=== PATIENT | female | born 1945 | race Caucasian/White ===

== ENCOUNTER → 2023-11-02 11:35 | Outpatient (REF) | payer MEDICARE, SELFPAY ==
[2023-11-02 13:01] LABS: % Basophils 0.5 % (0-2); % Eosinophils 2.2 % (0-6); % Immature Granulocytes 0.7 % (0-0.5); % Lymphocytes 21.7 % (20.5-51.1); % Monocytes 11.1 % (1.7-9.3); % Neutrophils 63.8 % (42.2-75.2); Absolute Basophils 0.1 10^3/uL (0-0.2); Absolute Eosinophils 0.2 10^3/uL (0-0.7); Absolute Immature Granulocytes 0.1 10^3/uL (0-0.05); Absolute Lymphocytes 2.1 10^3/uL (1.2-3.4); Absolute Monocytes 1.1 10^3/uL (0.1-0.6); Hematocrit 33.9 % (37.0-47.0); Hemoglobin 11.3 g/dL (12.0-16.0); Mean Corp Hgb Conc. 33.3 g/dL (33.0-37.0); Mean Corpuscular Hgb 30.7 pg (27.0-31.0); Mean Corpuscular Volume 92.1 fL (81.0-99.0); Mean Platelet Volume 9.3 fL (7.4-10.4); Nucleated Red Blood Cells % 0 %; Platelet Count 376 10^3/uL (130-400); Red Blood Cell Count 3.68 10^6/uL (4.20-5.40); Red Cell Dist. Width 13.2 % (11.5-14.5); White Blood Cell Count 9.5 10^3/uL (4.8-10.8)
[2023-11-02 13:10] LABS: Urine Albumin Negative (Neg - Trace); Urine Bilirubin Negative (Negative); Urine Character Clear (Clear); Urine Color Yellow; Urine Glucose Negative (Negative); Urine Ketone Negative (Negative); Urine Leukocyte Negative (Negative); Urine Nitrite Negative (Negative); Urine Occult Blood Negative (Negative); Urine Urobilinogen Negative (Neg - 1+); Urine pH 6.5 (5.0-9.0)
[2023-11-02 13:23] LABS: ALT (SGPT) < 10 U/L (0-35); AST (SGOT) 17 U/L (14-36); Albumin 3.1 g/dl (3.5-5.0); Alkaline Phosphatase 93 U/L (38-126); Blood Urea Nitrogen 22 mg/dl (7-17); Calcium 9.2 mg/dl (8.4-10.2); Carbon Dioxide 22 mmol/L (22-30); Chloride 108 mmol/L (98-107); Glucose 83 mg/dl (70-99); Potassium 4.2 mmol/L (3.5-5.1); Sodium 137 mmol/L (135-145); Total Bilirubin 0.7 mg/dl (0.2-1.3); Total Protein 5.8 g/dl (6.3-8.2); eGFR > 60.00
== END ==
LOC: OLABN 11:35
PROVIDERS: ATTENDING PHYSICIAN Student in an Organized Health Care Education/Training Program
DX: R35.0 Frequency of micturition (principal); E78.5 Hyperlipidemia, unspecified
CPT/HCPCS: 80053; 81003; 83735; 85025; 87086

== ENCOUNTER → 2024-08-10 10:07 | Outpatient (REF) | payer MEDICARE, SELFPAY ==
[2024-08-10 12:12] LABS: HDL Cholesterol 33 mg/dl; LDL Cholesterol, Calculated 65 mg/dl; Total Cholesterol 138 mg/dl (50-199); Triglyceride 201 mg/dl (10-149); Very Low Density Lipoprotein 40 mg/dl (0-30)
== END ==
LOC: OLABN 10:07
PROVIDERS: ATTENDING PHYSICIAN Student in an Organized Health Care Education/Training Program
DX: E78.5 Hyperlipidemia, unspecified (principal)
CPT/HCPCS: 36415; 80061

== ENCOUNTER 2024-09-07 04:02 | Inpatient (IN) | payer MEDICARE, OTHER, SELFPAY ==
[2024-09-06 22:07] VITALS: BP 139/74
[2024-09-06] MEDS: TYLENOL/FEVERALL 650 MG RECTAL (22:40)
[2024-09-06 22:43] LABS: % Basophils 0.3 % (0-2); % Eosinophils 0.2 % (0-6); % Immature Granulocytes 0.3 % (0-0.5); % Lymphocytes 6.7 % (20.5-51.1); % Monocytes 12.2 % (1.7-9.3); % Neutrophils 80.3 % (42.2-75.2); Absolute Lymphocytes 0.8 10^3/uL (1.2-3.4); Absolute Monocytes 1.5 10^3/uL (0.1-0.6); Absolute Neutrophils 9.5 10^3/uL (1.4-6.5); Hematocrit 36.1 % (37.0-47.0); Hemoglobin 12.4 g/dL (12.0-16.0); Mean Corp Hgb Conc. 34.3 g/dL (33.0-37.0); Mean Platelet Volume 8.9 fL (7.4-10.4); Nucleated Red Blood Cells % 0 %; Platelet Count 222 10^3/uL (130-400); Red Blood Cell Count 3.76 10^6/uL (4.20-5.40); Red Cell Dist. Width 12.4 % (11.5-14.5); Urine Albumin 2+ (Neg - Trace); Urine Bilirubin Negative (Negative); Urine Character Clear (Clear); Urine Color Yellow; Urine Glucose Negative (Negative); Urine Ketone Negative (Negative); Urine Leukocyte 1+ (Negative); Urine Nitrite Negative (Negative); Urine Occult Blood 3+ (Negative); Urine Specific Gravity 1.015 (<1.030); Urine Urobilinogen Negative (Neg - 1+); White Blood Cell Count 11.9 10^3/uL (4.8-10.8)
[2024-09-06 22:50] LABS: Urine Mucus Few
[2024-09-06 22:52] LABS: Urine Bacteria Many (Negative)
[2024-09-06 23:05] LABS: Lactic Acid 0.6 mmol/L (0.7-2.0)
[2024-09-06 23:14] LABS: ALT (SGPT) 18 U/L (0-35); AST (SGOT) 32 U/L (14-36); Albumin 3.6 g/dl (3.5-5.0); Alkaline Phosphatase 99 U/L (38-126); Blood Urea Nitrogen 48 mg/dl (7-17); Calcium 8.2 mg/dl (8.4-10.2); Carbon Dioxide 25 mmol/L (22-30); Chloride 105 mmol/L (98-107); Glucose 127 mg/dl (70-99); Potassium 4.6 mmol/L (3.5-5.1); Sodium 139 mmol/L (135-145); Total Bilirubin 0.1 mg/dl (0.2-1.3); Total Protein 6.2 g/dl (6.3-8.2); eGFR 50.48
[2024-09-07] VITALS (13 sets, daily range): BP systolic 92–174; BP diastolic 52–86; BMI 29.2; BMI 28.2
--- NOTE | 2024-09-07 01:22 | ED.GENMED ---
History of Present Illness
General
Chief Complaint: Change in Mental Status
Source: ambulance crew
Exam Limitations: none
Time Seen by Provider: 09/07/24 01:16
Nursing documentation reviewed up to this point in time: agreed with
History of Present Illness
History of Present Illness:
79-year-old female with altered mental status, decreased responsiveness. She is unresponsive to painful stimuli at this time. She presents with a fever 103.8.
Past History
Past History
ED Past Medical History: HTN and Hypercholesterolemia
ED Past Surgical History: Other (unknown)
Social History
Tobacco: Non-smoker
Alcohol: None
Drug: None
Living: correction
Review of Systems
Review of Systems
Allergies reviewed?: Yes
Unable to obtain full review of systems at this time due to: non-verbal
All Other Systems: Not applicable
Constitutional: Reports fever
Phy Exam
Physical Exam
Physical Exam:
Physical Exam
General: Ill-appearing, fever 101.3
Neck: supple. no meningeal signs. normal posterior pharynx
Heart: s1/s2 regular rate and rhythm, no murmur. equal radial
pulses.
HEENT: Pupils equal round reactive to light, EOMI
Lungs: no acute respiratory distress. clear bilaterally
Abdomen: normal bowel sounds. not tender. no CVAT
Neuro: Obtunded. no focal neurological deficits cranial nerves II through XII intact
Skin: no rash
Psychiatric: Unresponsive
Extremities: no edema. no calf tenderness. negative homans. good distal pulses
Sepsis
Sepsis Screening
Sepsis Assessment: Sepsis
Sepsis Screening: Hypotension
Sepsis Screen
Sepsis Screen: Sepsis
Date: 09/07/24
Time: 01:00
Course
Orders/Labs/Results
Orders:
Orders
09/06/24 22:27
EKG [Electrocardiogram (*1)] Urgent
Reason for Study: Tachycardia
EKG- Treatment ONCE
09/06/24 22:29
Complete Blood Count/With Diff Urgent
Comprehensive Metabolic Panel Urgent
Lactic Acid Urgent
Urinalysis Reflex To Culture Urgent
Date Specimen was Collected: 09/06/24
Time Specimen was Collected: 22:27
Urine Microscopic Reflex Cult Urgent
Urine Culture Urgent
IVETH Source: U
Specimen Description:
Date Specimen was Collected: 09/06/24
Time Specimen was Collected: 22:27
09/06/24 22:38
Acetaminophen [Tylenol/Feverall] 650 mg .ROUTE .STK-MED ONE
09/06/24 22:39
Acetaminophen [Tylenol/Feverall] 650 mg RECTAL NOW STA
09/07/24 01:26
COVID-19 Antigen Urgent
Source: Nasal Swab
Influenza A+B Rapid Molecular Urgent
IVETH Source: Nasal Swab
Specimen Description:
09/07/24 02:06
CR Chest Portable - 1 View Urgent
Comment:
Reason For Exam: fever
Reason Study Needs to be Portable: Unable to Transport
09/07/24 02:08
Lactated Ringers [Lr] 1,000 ml IV BOLUS
09/07/24 02:48
Cefepime HCl [Maxipime] 1,000 mg IV NOW STA
09/07/24 02:50
Vancomycin [Vancocin] 2,000 mg 0.9% Sodium Chloride 500 ml [Nss] 500 ml IV NOW
09/07/24 03:07
Vancomycin [Vancocin] 2,000 mg 0.9% Sodium Chloride 500 ml [Nss] 500 ml IV NOW
09/07/24 04:00
Flush (0.9% Sodium Chloride) [Flush (Nss)] See Dose Instructions IV PER PROTOCOL
Abnormal Lab Results
09/06/24
22:29
WBC 11.9 H 10^3/uL
(4.8-10.8)
RBC 3.76 L 10^6/uL
(4.20-5.40)
Hct 36.1 L %
(37.0-47.0)
MCH 33.0 H pg
(27.0-31.0)
Absolute Neuts (auto) 9.5 H 10^3/uL
(1.4-6.5)
Absolute Lymphs (auto) 0.8 L 10^3/uL
(1.2-3.4)
Absolute Monos (auto) 1.5 H 10^3/uL
(0.1-0.6)
Neutrophils % 80.3 H %
(42.2-75.2)
Lymphocytes % 6.7 L %
(20.5-51.1)
Monocytes % 12.2 H %
(1.7-9.3)
BUN 48 H mg/dl
(7-17)
Creatinine 1.1 H mg/dL
(0.6-1.0)
Glucose 127 H mg/dl
(70-99)
Lactic Acid 0.6 L mmol/L
(0.7-2.0)
Calcium 8.2 L mg/dl
(8.4-10.2)
Total Bilirubin 0.1 L mg/dl
(0.2-1.3)
Total Protein 6.2 L g/dl
(6.3-8.2)
Ur Occult Blood Reflex 3+ A
(Negative)
Leukocyte Esterase Rfl 1+ A
(Negative)
Urine RBC 7-10 A /HPF
(0-2)
Urine WBC (Reflex) 11-15 A /HPF
(0-5)
Urine Bacteria (Reflex) Many A
(Negative)
Urine Albumin (Reflex) 2+ A
(Neg - Trace)
09/06/24 22:29
09/06/24 22:29
Vital Signs
Initial and Last Documented VS:
Initial Vital Signs
Temp Pulse Resp BP Pulse Ox
103.8 F H 122 28 139/74 88
09/06/24 22:07 09/06/24 22:07 09/06/24 22:07 09/06/24 22:07 09/06/24 22:07
Last Documented Vital Signs
Temp Pulse Resp BP Pulse Ox
101.3 F H 76 14 108/54 100
09/07/24 00:19 09/07/24 03:00 09/07/24 03:00 09/07/24 03:00 09/07/24 03:00
MDM/Problems Addressed
Differential Diagnosis Includes:
Sepsis, pneumonia, UTI
MDM/Problems Addressed:
79-year-old female with fever of unclear etiology. Patient altered. Limited interventions requested. Discussed with son Ludwig, who allows antibiotics. Broad-spectrum antibiotics given. Admit to hospitalist.
*Radiology
Radiology exam reviewed: preliminary read by ED provider (Chest x-ray no acute findings)
*Pulse Oximetry
Patient hypoxic: no
*EKG
Interpreted by ED Provider?: Yes
EKG Intrepretation Date: 09/07/24
EKG Intrepretation Time: 22:38
Interpretation: abnormal
Comparison EKG: changes noted
Heart Rate: 115
Rate: tachycardiac
Rhythm: sinus tachycardia
[place]: left axis deviation
Interval: normal interval
QRS Pattern: normal QRS
Ischemia: non-specific ST changes
*Mechanical Maintenance Engineer Interpretation
Rate: tachycardiac
Interpretation: abnormal
Heart Rate: 112
Rhythm: sinus tachycardia
*Critical Care Note
Total Time (30-74mins, 75-104mins- exclusive of procedures): Not Applicable
Patient Management
Social determinants of health affecting care: Living situation
Discussion with other providers: Hospitalist
Escalation/DeEscalation of care consider admission/obs:
admit indicated
ED Attending Note
-
Portions of this chart may have been created with voice recognition software.� Occasional wrong word or��sound alike� substitutions may have occurred due to the inherent limitations of voice recognition software.
Discharge Plan
Departure
Patient Disposition: Admit
Date of Disposition: 09/07/24
Time of Disposition: 02:34
Admit to: Telemetry
Presentation/result/management discussed w/ accepting MD/DO: Hospitalist
Patient with high blood pressure during this ER visit?: No
Condition: Serious
Discharge Problem:
Fever, Altered mental status
Prescriptions:
No Action
atorvastatin 20 MG tablet
20 mg PO QPM
diltiazem HCl [Tiazac] 180 MG capsule,extended release 24 hr
120 mg PO DAILY
polyethylene glycol 3350 [Miralax] 17 gram Powder In Packet
17 g PO DAILY
sennosides-docusate sodium [Senna-S] 8.6-50 mg Tablet
1 tab-cap PO HS
ferrous sulfate 325 mg (65 mg iron) Tablet
325 mg PO BID
ascorbic acid (vitamin C) 500 mg Capsule, Extended Release
500 mg PO DAILY
metoprolol succinate 25 mg Tablet Extended Release 24 Hr
12.5 mg PO DAILY
Vitamin D2 25,000 unit Capsule
50,000 unit PO WEEKLY
Referrals:
Markie Oleary DO [Family Provider] -
Interventions
Interventions:
*Risk Screen - Suicide Last Done: 09/06/24 22:07
*General Assessment Last Done: 09/06/24 22:07
*Neglect/Abuse Screening Last Done: 09/06/24 22:07
ED- Fall Risk Assessment Last Done: 09/06/24 22:07
*ED COVID-19 Vaccine History Last Done: 09/06/24 22:07
ED- Pulmonary Assessment Last Done: 09/07/24 00:46
ED- Neurological Assessment Last Done: 09/06/24 22:31
ED- Cardiac Assessment Last Done: 09/06/24 22:32
ED Swallowing Screen Last Done: 09/06/24 22:46
Discharge Date and Time
Print Language: [place]
[2024-09-07 01:56] LABS: COVID-19 Antigen Negative (Negative)
[2024-09-07] MEDS: LR 1000 IV (02:15)
[2024-09-07] MEDS: MAXIPIME IV (03:01)
--- NOTE | 2024-09-07 03:05 | EDRN ---
Assumed care of pt. at change of shift. Per outgoing RN, verbal order received from ED for RN to hold ordered antibiotics, as pt. arrives w/ paperwork, a POST document, that states pt. does not wish to receive antibiotics. ED attempting to
contact pt.'s family/POA to clarify pt.'s wishes, RN currently holding medication per verbal orders.
[2024-09-07] MEDS: VANCOCIN IV (03:09)
--- NOTE | 2024-09-07 03:33 | EDRN ---
Per Dr. Newell, pt. batsheva to receive ordered antibiotics. RN to administer.
[2024-09-07] MEDS: MAXIPIME 1000 MG IV (03:46)
[2024-09-07] MEDS: VANCOCIN 540 MG IV (03:47)
--- NOTE | 2024-09-07 03:50 | HPS.HSE ---
Family Physician
-
Family Physician: Markie Oleary DO
Chief Complaint
-
Fever, Lethargy
History of Present Illness
Patient is an 79y F with PMH significant for advanced dementia, hypertension and dyslipidemia who presents to ED from local ID for evaluation of lethargy and fever. ID record indicates that patient seemed more lethargic than usual. Noted to
have fever at ID and sent to ED for evaluation. On arrival to the ED, patient was tachycardic, hypoxemic and had fever to 103.8. Patient is unresponsive and unable to add to this history - ? baseline mentation.
She does have noted cough during my exam.
Medical History
Past Medical History
Past Medical History: Reports Other
Additional Past Medical History:
Senile Dementia
Hypertension
Dyslipidemia
Vitamin D Deficiency
Chronic Anemia
Past Surgical History: Reports Other
Additional Past Surgical History:
None Known
Social History
Unable to obtain full social history at this time due to: Patient Non-verbal
Family History
Family History: Unable to Obtain
Allergies / Home Medications
Allergies reflects when Allergies were last updated in [facility].
Home Medications with original date entered in [facility]
Allergy/Medication List:
Allergies
Allergy/AdvReac Type Severity Reaction Status Date / Time
Penicillins Allergy Unknown Unknown Verified 09/06/24 22:31
Home Medications
atorvastatin 20 mg tablet 20 mg PO QPM High cholesterol 01/17/22
diltiazem HCl 180 mg capsule,24 hr,extended release (Tiazac) 120 mg PO DAILY Heart disease/condition 01/17/22
ascorbic acid (vitamin C) 500 mg capsule,extended release 500 mg PO DAILY 09/07/24
ergocalciferol (vitamin D2) 25,000 unit capsule 50,000 unit PO WEEKLY 09/07/24
ferrous sulfate 325 mg (65 mg iron) tablet 325 mg PO BID 09/07/24
metoprolol succinate 25 mg tablet,extended release 24 hr 12.5 mg PO DAILY 09/07/24
polyethylene glycol 3350 17 gram oral powder packet (Miralax) 17 g PO DAILY 09/07/24
sennosides 8.6 mg-docusate sodium 50 mg tablet (Senna-S) 1 tab-cap PO HS 09/07/24
Review of Systems
-
Unable to obtain full review of systems at this time due to: Patient Non-verbal
Physical Exam
Vital Signs
Vital Signs
Temp Pulse Resp BP Pulse Ox
101.3 F H 76 14 108/54 100
09/07/24 00:19 09/07/24 03:00 09/07/24 03:00 09/07/24 03:00 09/07/24 03:00
Physical Exam
General: Other (79y F lethargic, unresponsive to verbal or noxious stimuli.)
HEENT: Other (Dry MM. Neck supple.)
Respiratory: Other (Decreased BS bilaterally. Poor effort. No focal rales / rhonchi appreciated.)
Cardiac: S1/S2, Regular Rhythm and Murmur (II/ KRIS)
GI: Soft, Non Tender, Non Distended and Normal Bowel Sounds
Musculoskeletal: No Clubbing, No Cyanosis and No Edema
Laboratory Results
-
09/06/24 22:29
09/06/24 22:
Laboratory Results
Lactic Acid 0.6 mmol/L (0.7-2.0) L 09/06/24 22:
Total Bilirubin 0.1 mg/dl (0.2-1.3) L 09/06/24 22:
AST 32 U/L (14-36) 09/06/24 22:
ALT 18 U/L (0-35) 09/06/24 22:
Alkaline Phosphatase 99 U/L (38-126) 09/06/24 22:
Impression/Plan
-
A/P: Patient is an 79y F with PMH significant for dementia and hypertension who presents to ED from local ID for evaluation of fever and lethargy.
Sepsis
Acute TME secondary to the above
- Admit for further evaluation and treatment.
- Patient presents with fever, tachycardia, tachypnea and transient hypoxemia.
- CXR somewhat difficult exam due to positioning - but no evident infiltrate.
- Cough during exam and ? aspiration episode.
- IV abx for now. Follow fever curve, culture data, etc.
- Aspiration precautions. Formal Speech evaluation.
- Follow for any new / focal complaints or symptoms.
- IVF support / antipyretics / etc.
- ID evaluation for additional recommendations.
NELDA
- SCr = 1.1 compared to prior baseline of 0.6.
- Likely secondary to sepsis.
- IVF support as noted above. Follow for improvement.
Benign Hypertension
- Hold outpatient medications acutely given relative hypotension.
- Resume when appropriate and patient OK for PO intake.
Senile Dementia
- ? baseline functional status.
- ID record indicates chronically incontinent and requires assistance with all ADLs.
- PT / OT evaluations.
- Follow for any acute agitation, etc during stay.
DVT Prophylaxis: Subcut heparin
Code Status: DNR
[2024-09-07] MEDS: NSS 1000 IV ×3 (04:36→23:01)
[2024-09-07 05:36] LABS: Hematocrit 34.6 % (37.0-47.0); Hemoglobin 11.5 g/dL (12.0-16.0); Mean Corp Hgb Conc. 33.2 g/dL (33.0-37.0); Mean Corpuscular Hgb 32.7 pg (27.0-31.0); Mean Corpuscular Volume 98.3 fL (81.0-99.0); Mean Platelet Volume 8.8 fL (7.4-10.4); Platelet Count 197 10^3/uL (130-400); Red Blood Cell Count 3.52 10^6/uL (4.20-5.40); Red Cell Dist. Width 12.5 % (11.5-14.5); White Blood Cell Count 8.1 10^3/uL (4.8-10.8)
[2024-09-07 05:49] LABS: Blood Urea Nitrogen 49 mg/dl (7-17); Calcium 8.4 mg/dl (8.4-10.2); Carbon Dioxide 25 mmol/L (22-30); Chloride 108 mmol/L (98-107); Estimated Creatinine Clearance 46 ml/min; Glucose 107 mg/dl (70-99); Potassium 4.3 mmol/L (3.5-5.1); Sodium 139 mmol/L (135-145); eGFR > 60.00
[2024-09-07] MEDS: HEPARIN 5000 UNITS SC ×2 (08:00→19:48)
[2024-09-07] MEDS: MAXIPIME 2000 MG IV ×2 (08:01→19:48)
[2024-09-07] MEDS: FLAGYL 500 MG 100 IV ×3 (08:01→23:00)
[2024-09-07] MEDS: STERILE WATER FOR INJECTION 10 ML IV ×2 (08:02→19:49)
[2024-09-07] MEDS: TYLENOL/FEVERALL 650 MG RECTAL ×3 (08:36→20:00)
--- NOTE | 2024-09-07 11:55 | W.PN.UPDATE ---
Addendum entered and electronically signed by Dilip Sharma MD 09/07/24 12:47:
Per son at baseline patient will say her name. and wont converse. Patient currently admitted to [facility] as with dementia.
Addendum entered and electronically signed by Dilip Sharma MD 09/07/24 12:47:
Updated patient's son Ludwig over the phone in details.
Original Note:
Update Note
Progress Note Update
Seen and examined independent of overnight physician
Patient currently resting in bed. Warm to touch. Opens eyes but not following commands.
General: Other (79y F lethargic, unresponsive to verbal or noxious stimuli.)
HEENT: Other (Dry MM. Neck supple.)
Respiratory: Other (Decreased BS bilaterally. Poor effort. No focal rales / rhonchi appreciated.)
Cardiac: S1/S2, Regular Rhythm and Murmur (II/ KRIS)
GI: Soft, Non Tender, Non Distended and Normal Bowel Sounds
Musculoskeletal: No Clubbing, No Cyanosis and No Edema
A/P: Patient is an 79y F with PMH significant for dementia and hypertension who presents to ED from local [place] for evaluation of fever and lethargy.
Sepsis
Acute TME secondary to the above
- Patient presents with fever, tachycardia, tachypnea and transient hypoxemia.
- CXR somewhat difficult exam due to positioning - but no evident infiltrate.
- IV abx for now. Follow fever curve, culture data, etc.
- Aspiration precautions. Formal Speech evaluation.
- Follow for any new / focal complaints or symptoms.
- IVF support / antipyretics / etc. persistent fevers noted. Influenza and COVID-negative.
- Blood cultures not ordered on admission. ordered for now. However patient did receive antibiotics.
- Unable to get CAT scan with contrast as with elevated creatinine.
- ID evaluation for additional recommendations.
Elevated creatinine likely NELDA versus NELDA on CKD
- Likely secondary to sepsis.
- IVF support as noted above. Follow for improvement.
- renal bladder US -r/o hydro.
Benign Hypertension
- Hold outpatient medications acutely given relative hypotension.
- Resume when appropriate and patient OK for PO intake.
Senile Dementia
- ? baseline functional status.
- NH record indicates chronically incontinent and requires assistance with all ADLs.
- PT / OT evaluations. Speech eval. NPO and IVF in the interim
- Follow for any acute agitation, etc during stay.
DVT Prophylaxis: Subcut heparin
Code Status: DNR
--- NOTE | 2024-09-07 16:17 | CON.ID ---
Consultation
-
Date/Time Consultation Requested: 09/07/2024 0410
Date/Time Consultation Performed: 09/07/2024 1550
Requesting Provider: Dr. Hampton
Performing Provider: Dr. Bucio
Reason for Consultation: Clinical sepsis
Chief Complaint / Past History
History of Present Illness
Alva Mac is an 79-year-old female being evaluated at request of Dr. Hampton in regards to clinical sepsis. History is obtained from chart review, along with patient interview.
The patient has a significant history of dementia, hypertension and dyslipidemia who [facility] secondary to reported change in mental status and decreased responsiveness. In the emergency room her
temperature was found to be 103.8 degrees (rectal), with a leukocytosis. Since admission she has had persistent fevers up to 102.5 degrees.
Little further information is available at this time. Family is at the bedside, but are not sure about the most recent events, having last seen the patient approximately 2 weeks prior. At baseline, they report that she opens her eyes, but does not
engage in significant verbalization.
Past History
Additional Past Medical History:
Advanced dementia
HTN
Dyslipidemia
Past Surgical History: Other (Unknown)
Allergy History:
Penicillins Allergy (Unknown, Verified 09/06/24 22:31)
Unknown
Medications Reviewed: Yes
Current Antibiotics:
Cefepime 2 g IV every 12 hours
Metronidazole 500 mg IV q8
Social History
Tobacco: Non-Smoker
Alcohol: None
Drug: None
Living: Alf
Employment: Not Employed
Family History
Family History: Unable to Obtain
Review of Systems
Vital Signs
Temp Pulse Resp BP Pulse Ox
102.5 F H 113 20 129/63 95
09/07/24 13:30 09/07/24 13:27 09/07/24 13:27 09/07/24 13:27 09/07/24 13:27
Physical Exam
Physical Exam
Constitutional: Comfortable, Acutely Ill, Chronically Ill and Non-toxic
Head: Normocephalic
Eyes: Pupils Equal, Pupils Round, No Conjunctival Hemorrhage and Sclera Anicteric
Oral: No Thrush and No Ulcers
Cardiovascular: Regular Rate and S1/S2; Negative S3/S4
Pulmonary: Clear; Negative Wheezes, Rales or Rhonchi
Gastrointestinal: Soft, Non Tender, Non Distended, Normal Bowel Sounds, No Rebound and No Guarding
Genito-Urinary: Negative [place], Suprapubic Tenderness or CVA Tenderness
Extremities: Edema (trace); Negative Cyanosis, Erythema or Calf Swelling
Skin: Warm and Dry; Negative Rash or Jaundice
Wound: None and Other
Neurological: Other (minimally responsive to voice/touch); Negative Meningeal Signs (No nuchal rigidity)
.
Lab / Diagnostic Study Results
09/07/24 05:15
09/07/24 05:15
Abs Immat Gran (auto) 0.0 10^3/uL (0-0.05) 09/06/24 22:29
Absolute Neuts (auto) 9.5 10^3/uL (1.4-6.5) H 09/06/24 22:29
Absolute Lymphs (auto) 0.8 10^3/uL (1.2-3.4) L 09/06/24 22:29
Absolute Monos (auto) 1.5 10^3/uL (0.1-0.6) H 09/06/24 22:29
Absolute Basos (auto) 0.0 10^3/uL (0-0.2) 09/06/24 22:
Immature Gran % 0.3 % (0-0.5) 09/06/24 22:29
Neutrophils % 80.3 % (42.2-75.2) H 09/06/24 22:
Lymphocytes % 6.7 % (20.5-51.1) L 09/06/24 22:
Monocytes % 12.2 % (1.7-9.3) H 09/06/24 22:
Eosinophils % 0.2 % (0-6) 09/06/24 22:
Basophils % 0.3 % (0-2) 09/06/24 22:
Lactic Acid 0.6 mmol/L (0.7-2.0) L 09/06/24:
Ur Squamous Epith Cells 11-15 /LPF (Few) 09/06/24 22:
Microbiology Results
Micro:
09/07/24 09:02 Blood Culture - Pending
Blood/Venous
09/07/24 08:37 Blood Culture - Pending
Blood/Venous
09/07/24 01:26 Influenza Types A & B (BALAJI) - Final
Nasal Swab Negative for Influenza A & B, NAAT
Negative results must be combined with clinical observations
and patient history.
Nucleic Acid Amplification test (NAAT)performed on the
[employer] platform.
09/06/24 22:29 Urine Culture - Pending
Urine
Imaging:
09/07/2024 CXR (portable): Cardiomediastinal silhouette is within normal limits. Lungs are clear, without evidence of lobar pneumonia. No pleural effusion, pneumothorax or CHF noted. Please see full dictation for additional detail. Film
personally viewed.
Assessment / Plan
Fever
Leukocytosis
Encephalopathy; suspect TME
NELDA; improved
Hx Advanced dementia
HTN
Dyslipidemia
Recommendations:
Etiology of fever and leukocytosis not immediately evident. DDx includes urinary tract infection, early pneumonia (aspiration), viral etiology, central, other.
Influenza and COVID-19 testing negative.
Blood cultures and urine culture pending.
Continue current empiric antibiotics (cefepime, metronidazole).
Monitor white count and temperature curve.
Follow pending cultures.
If temps persist, consider CT abd/pelvis +/- chest
Further recommendations as additional data is returned.
[2024-09-08] VITALS (11 sets, daily range): BP systolic 117–176; BP diastolic 63–114
[2024-09-08 07:49] LABS: Hematocrit 34.2 % (37.0-47.0); Hemoglobin 11.5 g/dL (12.0-16.0); Mean Corp Hgb Conc. 33.6 g/dL (33.0-37.0); Mean Corpuscular Hgb 33.3 pg (27.0-31.0); Mean Corpuscular Volume 99.1 fL (81.0-99.0); Mean Platelet Volume 9.1 fL (7.4-10.4); Platelet Count 187 10^3/uL (130-400); Red Blood Cell Count 3.45 10^6/uL (4.20-5.40); Red Cell Dist. Width 12.6 % (11.5-14.5); White Blood Cell Count 11.1 10^3/uL (4.8-10.8)
[2024-09-08 08:00] LABS: Blood Urea Nitrogen 34 mg/dl (7-17); Calcium 8.1 mg/dl (8.4-10.2); Carbon Dioxide 23 mmol/L (22-30); Chloride 109 mmol/L (98-107); Estimated Creatinine Clearance 50 ml/min; Glucose 75 mg/dl (70-99); Potassium 3.9 mmol/L (3.5-5.1); Sodium 143 mmol/L (135-145); eGFR > 60.00
[2024-09-08] MEDS: LR 1000 IV ×2 (08:55→22:42)
[2024-09-08] MEDS: MAXIPIME 2000 MG IV (08:56)
[2024-09-08] MEDS: HEPARIN 5000 UNITS SC ×2 (08:56→22:41)
[2024-09-08] MEDS: FLAGYL 500 MG 100 IV ×2 (08:56→21:35)
[2024-09-08] MEDS: STERILE WATER FOR INJECTION 10 ML IV (08:56)
[2024-09-08] MEDS: FLUSH (NSS) 1 FLUSH IV (08:57)
[2024-09-08 09:14] LABS: Absolute Neutrophils -Man Diff 9.6 10^3/uL (1.4-6.5); Band Neutrophils 24 % (0-3); Eosinophils 1 % (0-6); Lymphocytes 6 % (20-51); Monocytes 6 % (2-9); Normal RBC Morphology Yes; Platelets Checked Yes; Segmented Neutrophils 63 % (42-75); Total Cells Counted 100
--- NOTE | 2024-09-08 11:02 | PTOTSP ---
SPEECH THERAPY SWALLOW EVALUATION:
Patient exhibits clinical signs of oropharyngeal dysphagia, likely chronic related to advanced dementia and acutely exacerbated by sepsis/TME. Patient remains at HIGH RISK for aspiration and related complications given lethargy. Recommend strict NPO
at this time. Consider temporary alternate means for nutrition/medication/hydration if consistent with goals of care. ST to follow, re-assess in 24 hours, determine readiness for additional p.o. trials/initiation of oral diet and/or instrumental
assessment of swallowing as appropriate.
RECOMMEND:
1) strict NPO
2) Consider temporary alternate means for nutrition/medication/hydration if consistent with goals of care
3) Oral care 3x/day
4) ST to follow, re-assess in 24 hours, determine readiness for additional p.o. trials/initiation of oral diet and/or instrumental assessment of swallowing as appropriate
--- NOTE | 2024-09-08 12:33 | W.PN.ID1 ---
Date of Service
Date of Service: September 08, 2024
Today's Communication
hospice being considered by family - already had indications for it due to end stage dementia
start ceftriaxone, stop cefepime, continue metronidazole
follow clinically
Assessment / Plan
Fever - improving
Leukocytosis
Encephalopathy; suspect TME
NELDA; improved
Hx Advanced dementia
HTN
Dyslipidemia
Recommendations:
unclear source of sepsis
UA mild pyuria however culture with only 25K GNR - likely not the source
Etiology of fever and leukocytosis not immediately evident. DDx includes urinary tract infection, early pneumonia (aspiration), viral etiology, central, other.
Influenza and COVID-19 testing negative.
Blood cultures and urine culture pending.
CXR - no infiltrates on 09/07; repeat
Discussed at length with son Ludwig (POA) and Brandie, at baseline Alva is abulic, needs help with all of her adls including eating, and Brandie shares that when she first started with dementia and was admitted to half-way she repeatedly told
her 'its time to let me go.' She reportedly did not have these conversations with Ludwig. We discussed that dementia is progress, irreversible, fatal and is usually due to infection. Ludwig has not been approached about hospice prior to this
communication. She is DNR. Ludwig would like to 'see how she does' with empiric antibiotics while minimizing invasive procedures. Specifically he is refusing NGT placement for CT with oral contrast and LP - both of which would be indicated at this
time in my opinion.
Ordered CT a/p with IV contrast only
Continue empiric antibiotics started ceftriaxone, stopped cefepime, continue metronidazole.
Follow clinically, prognosis guarded, recommend hospice for end stage dementia.
Chief Complaint
-: Fever
Subjective / Review of Systems
fevers improved
bp stable
no events overnight
unable to voice a complaint
Vital Signs / Physical Exam
Vital Signs
Vital Signs
Temp Pulse Resp BP Pulse Ox
99.0 F 95 20 145/63 91
09/08/24 07:55 09/08/24 07:55 09/08/24 07:55 09/08/24 07:55 09/08/24 08:54
Physical Exam
Constitutional: No Acute Distress and Chronically Ill
Head: Other (somewhat stiff - patient resistance vs symptomatic)
Cardiovascular: Regular Rate and S1/S2; Negative Murmur or Rub
Pulmonary: Clear and Symmetric; Negative Wheezes or Rales
Gastrointestinal: Soft, Non Tender, Non Distended and Normal Bowel Sounds
Skin: Warm and Dry; Negative Rash or Jaundice
Neurological: Negative Awake or Alert
Objective Data
Lab Data
Lab Results
09/08/24 06:59
09/08/24 06:59
Estimated Creat Clear 50 ml/min 09/08/24 06:59
Lactic Acid 0.6 mmol/L (0.7-2.0) L 09/06/24 22:29
Total Bilirubin 0.1 mg/dl (0.2-1.3) L 09/06/24 22:29
AST 32 U/L (14-36) 09/06/24 22:29
ALT 18 U/L (0-35) 09/06/24 22:29
Alkaline Phosphatase 99 U/L (38-126) 09/06/24 22:29
Most recent labs reviewed.
Micro Results:
09/07/24 09:02 Blood Culture - Preliminary
Blood/Venous No Growth in 24 hours- Final report to follow
09/06/24 22:29 Urine Culture - Preliminary
Urine Gram negative bacilli
09/07/24 08:37 Blood Culture - Preliminary
Blood/Venous No Growth in 24 hours- Final report to follow
09/07/24 18:45 MRSA Screen - Pending
Nose
09/07/24 01:26 Influenza Types A & B (BALAJI) - Final
Nasal Swab Negative for Influenza A & B, NAAT
Negative results must be combined with clinical observations
and patient history.
Nucleic Acid Amplification test (NAAT)performed on the
[employer] platform.
Imaging:
09/07/2024 CXR (portable): Cardiomediastinal silhouette is within normal limits. Lungs are clear, without evidence of lobar pneumonia. No pleural effusion, pneumothorax or CHF noted. Please see full dictation for additional detail. Film
personally viewed.
--- NOTE | 2024-09-08 12:52 | W.PN.HOSP.TC ---
Today's Communication/Plan
-
Speech eval once again tomorrow
Monitor mentation
IV fluids
IV antibiotics
Monitor fever curve
Await for culture data
ID recs
Assessment / Plan
Assessment / Plan
General: Other (79y F lethargic, unresponsive to verbal or noxious stimuli.)
HEENT: Other (Dry MM. Neck supple.)
Respiratory: Other (Decreased BS bilaterally. Poor effort. No focal rales / rhonchi appreciated.)
Cardiac: S1/S2, Regular Rhythm and Murmur (II/ KRIS)
GI: Soft, Non Tender, Non Distended and Normal Bowel Sounds
Musculoskeletal: No Clubbing, No Cyanosis and No Edema
A/P: Patient is an 79y F with PMH significant for dementia and hypertension who [place] [facility] [place] [facility] [place] and lethargy.
Sepsis likely secondary to urinary tract infection
- Patient presents with fever, tachycardia, tachypnea and transient hypoxemia.
- CXR somewhat difficult exam due to positioning - but no evident infiltrate.
- IV abx for now. Follow fever curve, culture data, etc.
- Aspiration precautions. Formal Speech evaluation.
- Follow for any new / focal complaints or symptoms.
- IVF support / antipyretics / etc. persistent fevers noted. Influenza and COVID-negative.
- Blood cultures not ordered on admission. ordered for now. However patient did receive antibiotics.
- Renal bladder ultrasound negative for hydronephrosis. Urine culture is positive. Fever curve down trended.
- ID evaluation for additional recommendations.
Acute kidney injury
- Likely secondary to sepsis.
- IVF support as noted above. Follow for improvement.
- renal bladder US negative for hydro. Creatinine improved. Switch fluids to LR.
Benign Hypertension
- Hold outpatient medications acutely given relative hypotension.
- Resume when appropriate and patient OK for PO intake.
Senile Dementia
Toxic metabolic encephalopathy likely secondary to progression of dementia
- ? baseline functional status.
- NH record indicates chronically incontinent and requires assistance with all ADLs.
- PT / OT evaluations. Speech eval. NPO and IVF in the interim
- Follow for any acute agitation, etc during stay. By speech recommending strict n.p.o. for now.
-Seems with advanced dementia. Prognosis guarded.
Hyperlipidemia�restart statin once safe to take p.o.
Iron deficiency anemia�restart p.o. regimen once safe to take
DVT Prophylaxis: Subcut heparin
Code Status: DNR
Anticipated Discharge: > 48 hours
Subjective/Interval History
-
Date of Service: September 08, 2024
fever curve downtrended
eyes remains closed
Objective Data
-
Labs:
Laboratory Results
09/08/24
06:59
WBC 11.1 H
Hgb 11.5 L
Hct 34.2 L
Plt Count 187
Sodium 143
Potassium 3.9
Chloride 109 H
Carbon Dioxide 23
BUN 34 H
Creatinine 0.8
Glucose 75
Calcium 8.1 L
Vital Signs:
Vital Signs
Temp Pulse Resp BP Pulse Ox
98.1 F 105 20 146/74 99
09/08/24 11:55 09/08/24 11:55 09/08/24 11:55 09/08/24 11:55 09/08/24 11:55
I&O
09/07/24 09/08/24 09/09/24
06:59 06:59 06:59
Intake Total 1600 / 1600
Balance 1600 / 1600
Data Reviewed
-
Total Time Spent with Patient (in minutes): 55
--- NOTE | 2024-09-08 17:02 | PTCARENOTE ---
Pt remains unresponsive ot verbal stimuli; keeps eyes closed; occ opens eyes slightly to tactile stimuli/positioning. Non-verbal, does not follow commands. Keeps arms contracted. moves Left arm and BLE to tactile stimuli/positioning. BP 174/93.
Maintained on nc 6 lpm- pulse ox 91%, pt with occ loose, non-productive cough. Abd large, soft, NPO maintained, incont soft green/brown BM. Incont large amts urine. IVF's RL @ 80 ml/hr infusing via Lt forearm site without sx of infiltration.
Will continue to monitor.
[2024-09-08] MEDS: TYLENOL/FEVERALL 650 MG RECTAL (17:14)
[2024-09-08] MEDS: VENTOLIN NEBULES 2.5 MG INH (20:19)
[2024-09-08] MEDS: ROCEPHIN 2000 MG IV (21:45)
[2024-09-08] MEDS: STERILE WATER FOR INJECTION 20 ML IV (21:45)
[2024-09-09] VITALS (7 sets, daily range): BP systolic 122–194; BP diastolic 81–112; BMI 29.4
[2024-09-09] MEDS: TYLENOL/FEVERALL 650 MG RECTAL ×2 (02:03→16:14)
--- NOTE | 2024-09-09 06:19 | PTCARENOTE ---
Addendum entered by Minerva Maher RN 09/09/24 06:22:
Repeat temp99.8axillary,HR-89.
Original Note:
Pt aaoxself only. Pt axillary temp 102.7 pt was provided with rectal tylenol,IV fluids continued, IV antibiotics continued.NEEDLE LOOM WEAVER hand button splitter made aware of pt temp, pt HR in 105-112. Plan of care continued on pt.
[2024-09-09 06:55] LABS: % Basophils 0.3 % (0-2); % Immature Granulocytes 0.5 % (0-0.5); % Monocytes 5.3 % (1.7-9.3); % Neutrophils 84.9 % (42.2-75.2); Absolute Lymphocytes 0.6 10^3/uL (1.2-3.4); Absolute Monocytes 0.3 10^3/uL (0.1-0.6); Absolute Neutrophils 5.5 10^3/uL (1.4-6.5); Hemoglobin 10.5 g/dL (12.0-16.0); Mean Corp Hgb Conc. 33.9 g/dL (33.0-37.0); Mean Corpuscular Hgb 32.7 pg (27.0-31.0); Mean Corpuscular Volume 96.6 fL (81.0-99.0); Mean Platelet Volume 9.1 fL (7.4-10.4); Nucleated Red Blood Cells % 0 %; Platelet Count 184 10^3/uL (130-400); Red Blood Cell Count 3.21 10^6/uL (4.20-5.40); Red Cell Dist. Width 12.5 % (11.5-14.5); White Blood Cell Count 6.5 10^3/uL (4.8-10.8)
[2024-09-09 07:31] LABS: Blood Urea Nitrogen 31 mg/dl (7-17); Calcium 8.6 mg/dl (8.4-10.2); Carbon Dioxide 21 mmol/L (22-30); Chloride 108 mmol/L (98-107); Estimated Creatinine Clearance 52 ml/min; Glucose 95 mg/dl (70-99); Potassium 3.5 mmol/L (3.5-5.1); Sodium 141 mmol/L (135-145); eGFR > 60.00
[2024-09-09] MEDS: HEPARIN 5000 UNITS SC ×2 (08:43→20:20)
[2024-09-09] MEDS: FLAGYL 500 MG 100 IV ×2 (08:43→20:18)
[2024-09-09] MEDS: VENTOLIN NEBULES 2.5 MG INH (08:51)
--- NOTE | 2024-09-09 09:59 | PTOTSP ---
Speech Pathology Follow Up Note
Chart reviewed. Febrile, 102.7F. 5LPM via NC. CXR 09/09 concerning for PNA in LLL. Attempted to see patient. Unable to arouse. Not appropriate for PO trials at this time. Hold until patient is more awake and alert. Maintain current NPO
recommendations. Alerted CORKY Chan.
RECOMMEND:
1) strict NPO
2) Consider temporary alternate means for nutrition/medication/hydration if consistent with goals of care
3) Oral care 3x/day
4) ST to follow, re-assess in 24 hours or earlier if awake/alert, determine readiness for additional p.o. trials/initiation of oral diet and/or instrumental assessment of swallowing as appropriate
[2024-09-09] MEDS: LR IV (10:51)
--- NOTE | 2024-09-09 11:38 | W.PN.HOSP.TC ---
Today's Communication/Plan
-
Hold IV fluids as with wet cough
Await CAT scan results
Broad-spectrum antibiotic
Will discussed with family
Prognosis poor
Assessment / Plan
Assessment / Plan
General: Other (79y F lethargic, unresponsive to verbal or noxious stimuli.)
HEENT: Other (Dry MM. Neck supple.)
Respiratory: Other (Decreased BS bilaterally. Poor effort. No focal rales / rhonchi appreciated.)
Cardiac: S1/S2, Regular Rhythm and Murmur (II/ KRIS)
GI: Soft, Non Tender, Non Distended and Normal Bowel Sounds
Musculoskeletal: No Clubbing, No Cyanosis and No Edema
A/P: Patient is an 79y F with PMH significant for dementia and hypertension who presents to ED from local [place] for evaluation of fever and lethargy.
Sepsis likely secondary to e.coli urinary tract infection vs. bacteremia vs. central infection vs. aspiration pneumonia
- Patient presents with fever, tachycardia, tachypnea and transient hypoxemia.
- CXR somewhat difficult exam due to positioning - but no evident infiltrate.
- IV abx for now. Continue with ceftriaxone and Flagyl. Cefepime discontinued. Follow fever curve, culture data, etc.
- Aspiration precautions. Formal Speech evaluation. However due to mentation-not safe to administer po access.
- Follow for any new / focal complaints or symptoms.
- IVF support / antipyretics / etc. persistent fevers noted. Influenza and COVID-negative.
- Blood cultures not ordered on admission. ordered for now. However patient did receive antibiotics.
- Renal bladder ultrasound negative for hydronephrosis. Urine culture is positive. Fever curve down trended.
- CT abd/pelvis pending
- ID evaluation for additional recommendations.
Acute kidney injury
- Likely secondary to sepsis.
- IVF support as noted above. Follow for improvement.
- renal bladder US negative for hydro. Creatinine improved. Switch fluids to LR.
Benign Hypertension
- Hold outpatient medications acutely given relative hypotension.
- Resume when appropriate and patient OK for PO intake.
Senile Dementia
Toxic metabolic encephalopathy likely secondary to progression of dementia
- ? baseline functional status.
- NH record indicates chronically incontinent and requires assistance with all ADLs.
- PT / OT evaluations. Speech eval. NPO and IVF in the interim
- Follow for any acute agitation, etc during stay. By speech recommending strict n.p.o. for now.
-Seems with advanced dementia. Not participating in swallow evaluation. Not a appropriate candidate for artificial nutrition.
Hyperlipidemia�restart statin once safe to take p.o.
Iron deficiency anemia�restart p.o. regimen once safe to take
DVT Prophylaxis: Subcut heparin
Code Status: DNR
Anticipated Discharge: > 48 hours
Subjective/Interval History
-
Date of Service: September 09, 2024
remains with wet cough
remains contracted and not opening eyes or participating in activity or shallow eval
Objective Data
-
Labs:
Laboratory Results
09/09/24
06:18
WBC 6.5
Hgb 10.5 L
Hct 31.0 L
Plt Count 184
Sodium 141
Potassium 3.5
Chloride 108 H
Carbon Dioxide 21 L
BUN 31 H
Creatinine 0.8
Glucose 95
Calcium 8.6
Vital Signs:
Vital Signs
Temp Pulse Resp BP Pulse Ox
99.0 F 109 15 122/81 96
09/09/24 11:17 09/09/24 11:17 09/09/24 11:17 09/09/24 11:17 09/09/24 11:17
I&O
09/08/24 09/09/24 09/10/24
06:59 06:59 06:59
Intake Total 1600 / 1600 1000 / 1000
Balance 1600 / 1600 1000 / 1000
Data Reviewed
-
Total Time Spent with Patient (in minutes): 55
--- NOTE | 2024-09-09 13:08 | W.PN.UPDATE ---
Update Note
Progress Note Update
Discussed with son Ludwig QUIROGA at bedside in detail. Explained patient hospitalization so far. Patient with sepsis and spiking fever likely secondary to aspiration pneumonia. Patient with dementia likely has been having chronic aspiration. Patient
continues to remain lethargic and without any oral intake. Patient with rhonchorous sound. Discussed patient not appropriate candidate for artificial feeding via NG tube and PEG tube. Explained risk of aspiration and patient with dementia with
high risk of removing PEG tube. Zach Munroe understood. Explained hospice and Ludwig agreed. Hospice consultation placed.
--- NOTE | 2024-09-09 14:21 | HOSPNOTE ---
Met with son Ludwig at hospital and his sister via phone. Explained hospice care and what would be provided and covered under hospice at [facility]. Explained hospice philosophy and our visit structure. Both son and daughter seem comfortable
with hospice at [facility]. Son stated some testing is pending but he believes this is the correct decision.
--- NOTE | 2024-09-09 14:57 | CM ---
Call placed to [facility] to request pt's return with hospice services; VM left requesting return call to coordinate discharge back to gi technician care.
Family has chosen [facility] for hospice care. CM will follow to coordinate discharge to [facility].
[2024-09-09] MEDS: LOPRESSOR 5 MG IV ×2 (16:25→23:46)
[2024-09-09] MEDS: ROCEPHIN 2000 MG IV (20:21)
[2024-09-09] MEDS: STERILE WATER FOR INJECTION 20 ML IV (20:21)
[2024-09-10] VITALS (7 sets, daily range): BP systolic 121–168; BP diastolic 74–117; BMI 28.8
[2024-09-10] MEDS: VENTOLIN NEBULES 2.5 MG INH ×2 (00:35→03:56)
[2024-09-10] MEDS: MORPHINE SULFATE 1 MG IV (04:44)
--- NOTE | 2024-09-10 06:19 | PTCARENOTE ---
Pt aaoxself only.HEAVY EQUIPMENT OPERATOR/PAVER made aware of pt respiration in 28-38.Pt provided with prn breathing treatment twice,tachy on monitor 108,low grade temp.Pt using accessory muscles to breathe. HEAVY EQUIPMENT OPERATOR/PAVER ordered morphine 1mg for pt.Plan of care continued.
[2024-09-10 07:25] LABS: % Basophils 0.2 % (0-2); % Immature Granulocytes 0.5 % (0-0.5); % Monocytes 6.8 % (1.7-9.3); % Neutrophils 85.5 % (42.2-75.2); Absolute Lymphocytes 0.4 10^3/uL (1.2-3.4); Absolute Monocytes 0.4 10^3/uL (0.1-0.6); Absolute Neutrophils 4.8 10^3/uL (1.4-6.5); Hematocrit 32.6 % (37.0-47.0); Hemoglobin 11.1 g/dL (12.0-16.0); Mean Corpuscular Hgb 33.1 pg (27.0-31.0); Mean Corpuscular Volume 97.3 fL (81.0-99.0); Nucleated Red Blood Cells % 0 %; Platelet Count 197 10^3/uL (130-400); Red Blood Cell Count 3.35 10^6/uL (4.20-5.40); Red Cell Dist. Width 12.5 % (11.5-14.5); White Blood Cell Count 5.6 10^3/uL (4.8-10.8)
[2024-09-10 07:46] LABS: Carbon Dioxide 20 mmol/L (22-30); Estimated Creatinine Clearance 45 ml/min; eGFR > 60.00
[2024-09-10 07:58] LABS: Blood Urea Nitrogen 31 mg/dl (7-17); Calcium 8.6 mg/dl (8.4-10.2); Chloride 107 mmol/L (98-107); Glucose 142 mg/dl (70-99); Potassium 3.1 mmol/L (3.5-5.1); Sodium 142 mmol/L (135-145)
[2024-09-10] MEDS: HEPARIN 5000 UNITS SC ×2 (08:07→21:52)
[2024-09-10] MEDS: FLAGYL 500 MG 100 IV ×2 (08:07→21:52)
[2024-09-10] MEDS: KCL 270 MEQ IV (09:03)
--- NOTE | 2024-09-10 10:06 | HOSPNOTE ---
Addendum entered by Jocelyn Real RN 09/10/24 14:13:
Notified by CM that [facility] is willing to accept patient back with Hospice Services. Called and spoke to patients on Ludwig. Reviewed how patient will be signed onto hospice. Will email him consents this evening to sign. Updated CM. Hospice will meet
patient at [facility] tomorrow and sign her onto hospice services.
Original Note:
Hospice continues to follow. At this time patient does not meet GIP criteria. Recommend that patient returns to [facility] with hospice services. Awaiting to hear from [facility] that they can accept patient back with hospice services.
Will follow and be available to admit at [facility] once they confirm return.
--- NOTE | 2024-09-10 13:11 | W.PN.HOSP.TC ---
Today's Communication/Plan
-
IV abx in the interim
Morphine prn
prognosis guarded
replete kcl
Assessment / Plan
Assessment / Plan
General: Other (79y F lethargic, unresponsive to verbal or noxious stimuli.)
HEENT: Other (Dry MM. Neck supple.)
Respiratory: Other (Decreased BS bilaterally. Poor effort. No focal rales / rhonchi appreciated.) tachypneic at times
Cardiac: S1/S2, Regular Rhythm and Murmur (II/ KRIS), tachycardia at times,
GI: Soft, Non Tender, Non Distended and Normal Bowel Sounds
Musculoskeletal: No Clubbing, No Cyanosis and No Edema
A/P: Patient is an 79y F with PMH significant for dementia and hypertension who presents to ED from local [place] for evaluation of fever and lethargy.
Sepsis likely secondary to e.coli urinary tract infection vs. bacteremia vs. central infection vs. aspiration pneumonia
- Patient presents with fever, tachycardia, tachypnea and transient hypoxemia.
- CXR somewhat difficult exam due to positioning - but no evident infiltrate.
- IV abx for now. Continue with ceftriaxone and Flagyl. Cefepime discontinued. Follow fever curve, culture data, etc.
- Aspiration precautions. Formal Speech evaluation. However due to mentation-not safe to administer po access.
- Follow for any new / focal complaints or symptoms.
- IVF support / antipyretics / etc. persistent fevers noted. Influenza and COVID-negative.
- Blood cultures not ordered on admission. ordered for now. However patient did receive antibiotics. Remains negative.
- Renal bladder ultrasound negative for hydronephrosis. Urine culture is positive. Fever curve down trended.
- CT abd/pelvis severe pneumonia in the posterior basilar segment of the lower lobes and lingula possibly aspiration pneumonia given left lower lobe and lingula endobronchial impaction.
- ID evaluation for additional recommendations.
Acute kidney injury
- Likely secondary to sepsis.
- IVF support as noted above. Follow for improvement.
- renal bladder US negative for hydro. Creatinine improved. Cr stabilizerd.
Benign Hypertension
- Hold outpatient medications acutely given relative hypotension.
- Resume when appropriate and patient OK for PO intake.
Senile Dementia
Toxic metabolic encephalopathy likely secondary to progression of dementia
- ? baseline functional status.
- NH record indicates chronically incontinent and requires assistance with all ADLs.
- PT / OT evaluations. Speech eval. NPO and IVF in the interim
- Follow for any acute agitation, etc during stay. By speech recommending strict n.p.o. for now.
-Seems with advanced dementia. Not participating in swallow evaluation. Not a appropriate candidate for artificial nutrition. This was discussed with patient's son that patient with high risk of pulling out NG tube and/or PEG tube moving
forward. Son understand and agreed.
Hypokalemia
-Replete and monitor
Hyperlipidemia�restart statin once safe to take p.o.
Iron deficiency anemia�restart p.o. regimen once safe to take
DVT Prophylaxis: Subcut heparin
Code Status: DNR
Discussed with patient's son with details on 09/09/2024 Family agreed for hospice. Awaiting dispo to SNF on hospice.
Discussed with patient's son Ludwig bull on 09/10/[address] abdomen pelvis of patient with severe aspiration pneumonia with impaction. Also discussed morphine for alleviation and son agreed. Awaiting for placement to SNF on hospice. Son
aware and agreed.
Anticipated Discharge: 24 - 48 hours
Subjective/Interval History
-
Date of Service: September 10, 2024
Spiked fevers yesterday
remains lethargic
intermittent tachycardia
Objective Data
-
Labs:
Laboratory Results
09/10/24
06:35
WBC 5.6
Hgb 11.1 L
Hct 32.6 L
Plt Count 197
Sodium 142
Potassium 3.1 L
Chloride 107
Carbon Dioxide 20 L
BUN 31 H
Creatinine 0.9
Glucose 142 H
Calcium 8.6
Vital Signs:
Vital Signs
Temp Pulse Resp BP Pulse Ox
98.5 F 99 18 151/89 97
09/10/24 11:04 09/10/24 11:04 09/10/24 11:04 09/10/24 11:04 09/10/24 11:04
I&O
09/09/24 09/10/24 09/11/24
06:59 06:59 06:59
Intake Total 1000 / 1000 1160 / 1160
Balance 1000 / 1000 1160 / 1160
Data Reviewed
-
Total Time Spent with Patient (in minutes): 58
--- NOTE | 2024-09-10 13:49 | CM ---
Call placed to [facility] again today to discuss patient's return today with hospice services. Lili Polo was not familiar with the patient (was not working today, and did not have access to the medical record).
CM to follow to coordinate discharge to [facility] for tomorrow with Hospice services. Discussed with pt's son, Ludwig, who advised that he is choosing Hospice. Yuni Real notified of confirmation of family choice for hospice.
Out of Hospital DNR form placed in chart along with transport request form and [facility].
Plan: Return to [facility] tomorrow with Hospice services.
--- NOTE | 2024-09-10 17:41 | PTOTSP ---
ST Consult
Chart reviewed. Pt's family opting to transition pt back to [facility] on hospice care. If pt's family would like to initiate comfort feeds, would recommend pureed solids and thin liquids with meds crushed in puree. Skilled FUR MACHINE OPERATOR services no longer warranted.
FUR MACHINE OPERATOR to sign off. Please re-consult if needed. Thank you.
[2024-09-10] MEDS: ROCEPHIN 2000 MG IV (21:53)
[2024-09-10] MEDS: STERILE WATER FOR INJECTION 20 ML IV (21:53)
[2024-09-10] MEDS: MORPHINE SULFATE IV (23:42)
[2024-09-10] MEDS: LOPRESSOR 5 MG IV (23:43)
[2024-09-11] MEDS: MORPHINE SULFATE 1 MG IV (00:46)
[2024-09-11 03:00] VITALS: BP 114/70
[2024-09-11] MEDS: TYLENOL/FEVERALL 650 MG RECTAL (04:50)
[2024-09-11 06:00] VITALS: BMI 28.6
[2024-09-11 07:20] VITALS: BP 145/77
[2024-09-11] MEDS: FLAGYL 500 MG 100 IV (07:35)
[2024-09-11] MEDS: HEPARIN 5000 UNITS SC (07:35)
[2024-09-11 07:48] LABS: Blood Urea Nitrogen 38 mg/dl (7-17); Calcium 8.8 mg/dl (8.4-10.2); Carbon Dioxide 25 mmol/L (22-30); Chloride 111 mmol/L (98-107); Estimated Creatinine Clearance 45 ml/min; Glucose 101 mg/dl (70-99); Sodium 145 mmol/L (135-145); eGFR > 60.00
[2024-09-11 07:57] LABS: Hematocrit 31.6 % (37.0-47.0); Hemoglobin 10.4 g/dL (12.0-16.0); Mean Corp Hgb Conc. 32.9 g/dL (33.0-37.0); Mean Corpuscular Hgb 32.4 pg (27.0-31.0); Mean Corpuscular Volume 98.4 fL (81.0-99.0); Platelet Count 181 10^3/uL (130-400); Red Blood Cell Count 3.21 10^6/uL (4.20-5.40); Red Cell Dist. Width 12.8 % (11.5-14.5); White Blood Cell Count 3.3 10^3/uL (4.8-10.8)
--- NOTE | 2024-09-11 10:00 | CM ---
CM reviewed pt with [facility]/ Hospice
Plan for dc today and return to [facility] with Hospice
Call with [facility] admissions/[facility] and they are in agreement
Call with son- in agreement with plan
IMM verbally reviewed- copy placed with dc paperwork for his receipt at SNF later today per request
DNR and transport forms on chart
BLS arranged with [facility] for 1200 pickup
Discharge Disposition- return [facility] with Hospice, 1200 BLS transport
Phone- [phone] Fax- [phone]
[2024-09-11 11:10] VITALS: BP 137/89
--- NOTE | 2024-09-11 11:17 | W.PN.ID1 ---
Date of Service
Date of Service: September 11, 2024
Today's Communication
DC further antibiotics. PT to SNF hospice
Assessment / Plan
Aspiration pneumonia
Fever
Leukocytosis
Encephalopathy; suspect TME
NELDA; improved
Hx Advanced dementia
HTN
Dyslipidemia
Recommendations:
Influenza and COVID-19 testing negative.
Blood cultures and urine culture pending.
09/09 CT a/p; severe pneumonia
Pt transitioning to hospice
DC antibiotics.
Chief Complaint
-: Fever
Subjective / Review of Systems
Lethargic
Vital Signs / Physical Exam
Vital Signs
Vital Signs
Temp Pulse Resp BP Pulse Ox
98.5 F 83 20 145/77 96
09/11/24 07:20 09/11/24 07:20 09/11/24 07:20 09/11/24 07:20 09/11/24 07:20
Physical Exam
Constitutional: Acutely Ill and Chronically Ill
Pulmonary: Rales (crackles bases)
Gastrointestinal: Soft, Non Tender and Non Distended
Objective Data
Lab Data
Lab Results
09/11/24 06:58
09/11/24 06:58
Estimated Creat Clear 45 ml/min 09/11/24 06:58
Lactic Acid 0.6 mmol/L (0.7-2.0) L 09/06/24 22:29
Total Bilirubin 0.1 mg/dl (0.2-1.3) L 09/06/24 22:29
AST 32 U/L (14-36) 09/06/24 22:29
ALT 18 U/L (0-35) 09/06/24 22:29
Alkaline Phosphatase 99 U/L (38-126) 09/06/24 22:
Most recent labs reviewed.
Micro Results:
09/07/24 09:02 Blood Culture - Preliminary
Blood/Venous No Growth in 4 days- Final report to follow
09/07/24 08:37 Blood Culture - Preliminary
Blood/Venous No Growth in 4 days- Final report to follow
09/06/24 22:29 Urine Culture - Final
Urine Escherichia coli
09/07/24 18:45 MRSA Screen - Final
Nose No Methicillin Resistant Staphylococcus aureus isolated.
09/07/24 01:26 Influenza Types A & B (BALAJI) - Final
Nasal Swab Negative for Influenza A & B, NAAT
Negative results must be combined with clinical observations
and patient history.
Nucleic Acid Amplification test (NAAT)performed on the
sliceX platform.
Imaging:
09/07/2024 CXR (portable): Cardiomediastinal silhouette is within normal limits. Lungs are clear, without evidence of lobar pneumonia. No pleural effusion, pneumothorax or CHF noted. Please see full dictation for additional detail. Film
personally viewed.
[2024-09-11 16:16] LABS: % Basophils 0.6 % (0-2); % Immature Granulocytes 1.5 % (0-0.5); % Lymphocytes 17.5 % (20.5-51.1); % Monocytes 10.2 % (1.7-9.3); % Neutrophils 70.2 % (42.2-75.2); Absolute Immature Granulocytes 0.1 10^3/uL (0-0.05); Absolute Lymphocytes 0.6 10^3/uL (1.2-3.4); Absolute Monocytes 0.3 10^3/uL (0.1-0.6); Absolute Neutrophils 2.3 10^3/uL (1.4-6.5); Nucleated Red Blood Cells % 0 %
--- NOTE | 2024-09-11 16:46 | W.PN.HOSP.TC ---
Today's Communication/Plan
-
d/c hospice at facility
Assessment / Plan
Assessment / Plan
Sepsis likely secondary to e.coli urinary tract infection vs. bacteremia vs. central infection vs. aspiration pneumonia
- Patient presents with fever, tachycardia, tachypnea and transient hypoxemia.
- CXR somewhat difficult exam due to positioning - but no evident infiltrate.
- IV abx for now. Continue with ceftriaxone and Flagyl. Cefepime discontinued. Follow fever curve, culture data, etc.
- Aspiration precautions. Formal Speech evaluation. However due to mentation-not safe to administer po access.
- Follow for any new / focal complaints or symptoms.
- IVF support / antipyretics / etc. persistent fevers noted. Influenza and COVID-negative.
- Blood cultures not ordered on admission. ordered for now. However patient did receive antibiotics. Remains negative.
- Renal bladder ultrasound negative for hydronephrosis. Urine culture is positive. Fever curve down trended.
- CT abd/pelvis severe pneumonia in the posterior basilar segment of the lower lobes and lingula possibly aspiration pneumonia given left lower lobe and lingula endobronchial impaction.
- ID evaluation for additional recommendations.
Acute kidney injury
- Likely secondary to sepsis.
- IVF support as noted above. Follow for improvement.
- renal bladder US negative for hydro. Creatinine improved. Cr stabilizerd.
Benign Hypertension
- Hold outpatient medications acutely given relative hypotension.
- Resume when appropriate and patient OK for PO intake.
Senile Dementia
Toxic metabolic encephalopathy likely secondary to progression of dementia
- ? baseline functional status.
- NH record indicates chronically incontinent and requires assistance with all ADLs.
- PT / OT evaluations. Speech eval. NPO and IVF in the interim
- Follow for any acute agitation, etc during stay. By speech recommending strict n.p.o. for now.
-Seems with advanced dementia. Not participating in swallow evaluation. Not a appropriate candidate for artificial nutrition. This was discussed with patient's son that patient with high risk of pulling out NG tube and/or PEG tube moving
forward. Son understand and agreed.
Hypokalemia
-Replete and monitor
Hyperlipidemia�restart statin once safe to take p.o.
Iron deficiency anemia�restart p.o. regimen once safe to take
DVT Prophylaxis: Subcut heparin
Code Status: DNR
per Dr green
Discussed with patient's son with details on 09/09/2024 Family agreed for hospice. Awaiting dispo to SNF on hospice.
Discussed with patient's son Ludwig bull on 09/10/[address] abdomen pelvis of patient with severe aspiration pneumonia with impaction. Also discussed morphine for alleviation and son agreed. Awaiting for placement to SNF on hospice. Son
aware and agreed.
More than 30 minutes spent in discharge including
Final examination of the patient
Summarizing hospital stay
Instructions for continuing care to all relevant caregivers
Preparation of discharge records, prescriptions, and referral forms
Total time spent (in minutes): 39 mins
Anticipated Discharge: Today
Subjective/Interval History
-
Date of Service: September 11, 2024
Patient is somnolent
No reported problems overnight
Objective Data
-
Labs:
Laboratory Results
09/11/24
06:58
WBC 3.3 L
Hgb 10.4 L
Hct 31.6 L
Plt Count 181
Sodium 145
Potassium 4.0 D
Chloride 111 H
Carbon Dioxide 25
BUN 38 H
Creatinine 0.9
Glucose 101 H
Calcium 8.8
Vital Signs:
Vital Signs
Temp Pulse Resp BP Pulse Ox
97.0 F 82 22 137/89 97
09/11/24 11:10 09/11/24 11:10 09/11/24 11:10 09/11/24 11:10 09/11/24 11:10
I&O
09/10/24 09/11/24 09/12/24
06:59 06:59 06:59
Intake Total 1160 / 1160 320 / 320
Balance 1160 / 1160 320 / 320
Review of Systems
-
Unable to obtain full review of systems at this time due to: Dementia
Physical Exam
-
HEENT: Oxygen
Respiratory: Clear to Auscultation
Cardiac: Regular Rhythm and S1/S2; Negative Murmur
GI: Soft and Nondistended
Neuro: Negative Awake or Alert
== END 2024-09-11 12:27 | DRG 871 ==
LOC: 4 EAST ACU 04:02
PROVIDERS: Hospitalist; ADMITTING PHYSICIAN Hospitalist; ATTENDING PHYSICIAN Hospitalist; CONSULT PHYSICIAN Internal Medicine Infectious Disease; EMERGENCY PHYSICIAN Emergency Medicine; FAMILY PHYSICIAN Student in an Organized Health Care Education/Training Program
DX: A41.9 Sepsis, unspecified organism (principal); G92.8 Other toxic encephalopathy; J69.0 Pneumonitis due to inhalation of food and vomit; N17.9 Acute kidney failure, unspecified; N39.0 Urinary tract infection, site not specified; F03.90 Unspecified dementia, unspecified severity, without behavioral disturbance, psychotic disturbance, mood disturbance, and anxiety; I10 Essential (primary) hypertension; E78.00 Pure hypercholesterolemia, unspecified; Z11.52 Encounter for screening for COVID-19; R09.02 Hypoxemia; B96.20 Unspecified Escherichia coli [E. coli] as the cause of diseases classified elsewhere; D64.9 Anemia, unspecified; E55.9 Vitamin D deficiency, unspecified; Z66 Do not resuscitate; E87.6 Hypokalemia; Z88.0 Allergy status to penicillin
CPT/HCPCS: 71045; 74177; 76770; 80048; 80053; 81003; 81015; 83605; 85025; 85027; 87040; 87070; 87077; 87086; 87186; 87502; 87811; 92610; 93005; 94640; 96361; 96365; 96366; 96367; 97163; 97167; 99285; Q9967

== ENCOUNTER → 2024-12-12 08:46 | Outpatient (REF) | payer MEDICARE, OTHER, SELFPAY ==
[2024-12-12 10:35] LABS: % Basophils 0.7 % (0-2); % Eosinophils 3.3 % (0-6); % Immature Granulocytes 0.4 % (0-0.5); % Lymphocytes 28.6 % (20.5-51.1); % Monocytes 9.8 % (1.7-9.3); % Neutrophils 57.2 % (42.2-75.2); Absolute Basophils 0.1 10^3/uL (0-0.2); Absolute Eosinophils 0.2 10^3/uL (0-0.7); Absolute Lymphocytes 2.1 10^3/uL (1.2-3.4); Absolute Monocytes 0.7 10^3/uL (0.1-0.6); Absolute Neutrophils 4.2 10^3/uL (1.4-6.5); Hematocrit 33.6 % (37.0-47.0); Hemoglobin 11.6 g/dL (12.0-16.0); Mean Corp Hgb Conc. 34.5 g/dL (33.0-37.0); Mean Corpuscular Hgb 32.2 pg (27.0-31.0); Mean Corpuscular Volume 93.3 fL (81.0-99.0); Mean Platelet Volume 9.1 fL (7.4-10.4); Nucleated Red Blood Cells % 0 %; Platelet Count 288 10^3/uL (130-400); Red Cell Dist. Width 13.5 % (11.5-14.5); White Blood Cell Count 7.3 10^3/uL (4.8-10.8)
[2024-12-12 10:52] LABS: ALT (SGPT) < 10 U/L (0-35); AST (SGOT) 16 U/L (14-36); Alkaline Phosphatase 79 U/L (38-126); Blood Urea Nitrogen 29 mg/dl (7-17); Calcium 9.4 mg/dl (8.4-10.2); Carbon Dioxide 26 mmol/L (22-30); Chloride 109 mmol/L (98-107); Glucose 84 mg/dl (70-99); HDL Cholesterol 34 mg/dl; Iron 83 ug/dl (37-170); LDL Cholesterol, Calculated 160 mg/dl; Magnesium 1.9 mg/dl (1.6-2.3); Potassium 4.9 mmol/L (3.5-5.1); Sodium 141 mmol/L (135-145); Total Bilirubin 0.4 mg/dl (0.2-1.3); Total Cholesterol 235 mg/dl (50-199); Total Protein 5.9 g/dl (6.3-8.2); Triglyceride 205 mg/dl (10-149); Very Low Density Lipoprotein 41 mg/dl (0-30); eGFR > 60.00
[2024-12-12 11:01] LABS: Percent Saturation 35 % (20-50); Total Iron Binding Capacity 233 ug/dl (265-497)
[2024-12-12 11:05] LABS: Albumin 3.5 g/dl (3.5-5.0)
[2024-12-12 12:03] LABS: Vitamin D, 25-OH*** 21.4 ng/mL (30-80)
[2024-12-12 12:14] LABS: TSH 3.41 uIU/ml (0.47-4.68)
[2024-12-12 12:34] LABS: Vitamin B12 250 pg/ml (239-931)
[2024-12-12 13:41] LABS: Glycohemoglobin (HgbA1c) 5.1 % (4.0-5.6)
== END ==
LOC: OLABN 08:46
PROVIDERS: ATTENDING PHYSICIAN Student in an Organized Health Care Education/Training Program
DX: D64.9 Anemia, unspecified (principal); E11.9 Type 2 diabetes mellitus without complications; I10 Essential (primary) hypertension; E78.5 Hyperlipidemia, unspecified; E55.9 Vitamin D deficiency, unspecified; E53.9 Vitamin B deficiency, unspecified; F03.90 Unspecified dementia, unspecified severity, without behavioral disturbance, psychotic disturbance, mood disturbance, and anxiety; E53.1 Pyridoxine deficiency
CPT/HCPCS: 36415; 80053; 80061; 82306; 82607; 82728; 83036; 83540; 83550; 83735; 84207; 84443; 85025

== ENCOUNTER → 2025-01-11 10:20 | Outpatient (REF) | payer MEDICARE, OTHER, SELFPAY | LOC: OLABN 10:20 | PROVIDERS: ATTENDING PHYSICIAN Student in an Organized Health Care Education/Training Program | DX: E53.9 Vitamin B deficiency, unspecified (principal); E53.1 Pyridoxine deficiency | CPT/HCPCS: 36415; 84207 ==

== ENCOUNTER → 2025-02-12 10:12 | Outpatient (REF) | payer MEDICARE, OTHER, SELFPAY ==
[2025-02-12 11:02] LABS: Vitamin D, 25-OH*** 40.6 ng/mL (30-80)
[2025-02-15 07:24] LABS: Vitamin B6 Results 17.2 nmol/L (20.0-125.0)
== END ==
LOC: OLABN 10:12
PROVIDERS: ATTENDING PHYSICIAN Student in an Organized Health Care Education/Training Program
DX: E55.9 Vitamin D deficiency, unspecified (principal); E53.1 Pyridoxine deficiency
CPT/HCPCS: 36415; 82306; 84207

== ENCOUNTER → 2025-07-30 09:52 | Outpatient (REF) | payer MEDICARE, OTHER, SELFPAY ==
[2025-07-30 10:54] LABS: Hematocrit 39.0 % (37.0-47.0); Hemoglobin 13.1 g/dL (12.0-16.0); Mean Corp Hgb Conc. 33.6 g/dL (33.0-37.0); Mean Corpuscular Volume 92.4 fL (81.0-99.0); Platelet Count 266 10^3/uL (130-400); Red Cell Dist. Width 13.3 % (11.5-14.5)
[2025-07-30 12:09] LABS: Blood Urea Nitrogen 43 mg/dl (7-17); Calcium 8.9 mg/dl (8.4-10.2); Carbon Dioxide 22 mmol/L (22-30); Chloride 101 mmol/L (98-107); Glucose 143 mg/dl (70-99); Potassium 4.9 mmol/L (3.5-5.1); Sodium 134 mmol/L (135-145); eGFR 37.56
[2025-07-30 14:01] LABS: Nucleated Red Blood Cells % 0 %
== END ==
LOC: OLABN 09:52
PROVIDERS: ATTENDING PHYSICIAN Student in an Organized Health Care Education/Training Program
DX: R05.9 Cough, unspecified (principal); R06.2 Wheezing
CPT/HCPCS: 36415; 80048; 85025

== ENCOUNTER → 2025-08-01 09:26 | Outpatient (REF) | payer MEDICARE, OTHER, SELFPAY ==
[2025-08-01 11:20] LABS: Hematocrit 33.5 % (37.0-47.0); Hemoglobin 11.3 g/dL (12.0-16.0); Mean Corp Hgb Conc. 33.7 g/dL (33.0-37.0); Mean Corpuscular Volume 95.4 fL (81.0-99.0); Nucleated Red Blood Cells % 0 %; Platelet Count 248 10^3/uL (130-400); Red Cell Dist. Width 13.9 % (11.5-14.5)
[2025-08-01 11:35] LABS: ALT (SGPT) 118 U/L (0-35); AST (SGOT) 97 U/L (14-36); Albumin 3.3 g/dl (3.5-5.0); Alkaline Phosphatase 95 U/L (38-126); Blood Urea Nitrogen 74 mg/dl (7-17); Calcium 8.8 mg/dl (8.4-10.2); Carbon Dioxide 17 mmol/L (22-30); Chloride 107 mmol/L (98-107); Glucose 157 mg/dl (70-99); Potassium 5.4 mmol/L (3.5-5.1); Sodium 135 mmol/L (135-145); Total Protein 6.1 g/dl (6.3-8.2); eGFR 24.48
== END ==
LOC: OLABN 09:26
PROVIDERS: ATTENDING PHYSICIAN Student in an Organized Health Care Education/Training Program
DX: D72.829 Elevated white blood cell count, unspecified (principal)
CPT/HCPCS: 36415; 80053; 85025

== ENCOUNTER → 2025-08-03 11:35 | Outpatient (REF) | payer MEDICARE, OTHER, SELFPAY ==
[2025-08-03 12:12] LABS: Hematocrit 34.8 % (37.0-47.0); Hemoglobin 11.5 g/dL (12.0-16.0); Mean Corp Hgb Conc. 33.0 g/dL (33.0-37.0); Mean Corpuscular Volume 98.0 fL (81.0-99.0); Nucleated Red Blood Cells % 0.9 %; Platelet Count 168 10^3/uL (130-400); Red Cell Dist. Width 14.4 % (11.5-14.5)
[2025-08-03 13:36] LABS: ALT (SGPT) 189 U/L (0-35); AST (SGOT) 130 U/L (14-36); Albumin 3.3 g/dl (3.5-5.0); Alkaline Phosphatase 82 U/L (38-126); Calcium 8.6 mg/dl (8.4-10.2); Carbon Dioxide 17 mmol/L (22-30); Chloride 112 mmol/L (98-107); Glucose 108 mg/dl (70-99); Potassium 4.9 mmol/L (3.5-5.1); Sodium 141 mmol/L (135-145); Total Protein 6.2 g/dl (6.3-8.2); eGFR 17.87
[2025-08-03 13:47] LABS: Blood Urea Nitrogen 128 mg/dl (7-17)
== END ==
LOC: OLABN 11:35
PROVIDERS: ATTENDING PHYSICIAN Student in an Organized Health Care Education/Training Program
DX: D72.829 Elevated white blood cell count, unspecified (principal)
CPT/HCPCS: 36415; 80053; 85025